=== PATIENT | male | born 1970 | race African-American/Black ===

== ENCOUNTER 2017-02-04 18:36 | Emergency (ER) | payer SELFPAY ==
[~2017-02-04] VITALS: Ht 188 cm; Wt 113.4 kg
[2017-02-04] MEDS ORDERED: IV NORMAL SALINE 1000ML BAG 1,000 ML IV SCH (19:30)
[2017-02-04] MEDS ORDERED: KETOROLAC TROMETHAMINE 30 MG/ML INJ. IV ONE (19:30)
[2017-02-04 20:02] LABS: BILIRUBIN,URINE NEGATIVE (NEG); GLUCOSE,URINE NEGATIVE (NEG); NITRITE,URINE NEGATIVE (NEG); PH,URINE 5.5; PROTEIN,URINE NEGATIVE (NEG-TRACE); UROBILINOGEN,URINE 0.2 mg/dL (0.2 mg/dL)
[2017-02-04 20:06] LABS: BASO # 0.1 x10^3/uL (0.0-0.2); BASO % 1 % (0-3); EOS % 1 % (0-3); HEMATOCRIT 41.2 % (39.0-53.0); HEMOGLOBIN 14.1 g/dL (13.0-17.5); LYMPH # 2.4 x10^3/uL (1.0-4.8); LYMPH % 34 % (24-48); MEAN CORPUSCULAR HEMOGLOBIN 31 pg (25-35); MEAN CORPUSCULAR HGB CONC 34 g/dL (31-37); MEAN CORPUSCULAR VOLUME 89 fL (79-100); MONO % 8 % (0-9); NEUT % 57 % (31-73); PLATELET COUNT 200 x10^3/uL (140-400); RED BLOOD COUNT 4.62 x10^6/uL (4.30-5.70); RED CELL DISTRIBUTION WIDTH 14.9 % (11.5-14.5); WHITE BLOOD COUNT 7.3 x10^3/uL (4.0-11.0)
[2017-02-04 20:08] LABS: BARBITURATES NEG (NEG); BENZODIAZEPINES NEG (NEG); CANNABINOIDS POS (NEG); COCAINE NEG (NEG); METHADONE NEG (NEG); OPIATES POS (NEG); PHENCYCLIDINE NEG (NEG)
[2017-02-04 20:09] LABS: BACTERIA,URINE 0 /HPF (0-FEW); RBC,URINE OCC /HPF (0-2); SQUAMOUS EPITHELIAL CELL,UR FEW /LPF; WBC,URINE OCC /HPF (0-4)
[2017-02-04 20:37] LABS: CKMB MASS 3.7 ng/mL (0.0-3.6)
[2017-02-04 20:51] LABS: ALK PHOS 82 U/L (46-116); ALT (SGPT) 25 U/L (16-63); AST (SGOT) 23 U/L (15-37); DIRECT BILIRUBIN 0.1 mg/dL (0.0-0.2); TOTAL BILIRUBIN 0.4 mg/dL (0.2-1.0); TOTAL PROTEIN 8.9 g/dL (6.4-8.2)
--- NOTE | 2017-02-04 20:55 | PHYS DOC ---
Past Medical History Past Medical History: Arthritis, CVA, Hypertension, Seizure Past Surgical History: Other Additional Past Surgical Histo: RT FINGER AMPUTEE Alcohol Use: None Drug Use: None Adult General Chief Complaint Chief Complaint: multiple HPI HPI Patient is a 46 year old male brought to the ED by family members with multiple complaints. Patient was recently released from halfway. 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 He drove himself home and right when he got out of his vehicle, he began to have pain on the left side of his chest and through both of his arms and legs. He felt like he had muscle spasms in his extremities. He walked to the porch and sat down in the chair, his legs spasmed up and he felt so bad he collapsed onto the porch. He feels like his legs are cramped up. It hurts to breathe. He has nausea but no vomiting. He feels like he has air bubbles under his rib cage. Family members found him collapsed on the porch and called EMS. He wanted to come here but we were close to ambulances at the time so EMS took him to [facility] where he was sent to the waiting room. Family stated he was going to have to wait too long to be seen so they put him in a wheelchair and took him to their car, put him in the car and brought him here to [place]. He did not ambulate into the ED, he was assisted from the car into the wheelchair by a family member. Patient states he has a history of seizures. He takes Depakote 500 mg twice a day. His last dose was this morning. His last seizure was Tuesday morning. 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 Patient does not have a primary care physician at this time. Review of Systems Review of Systems Constitutional: Denies fever or chills [] Eyes: Denies change in visual acuity, redness, or eye pain [] HENT: Denies nasal congestion or sore throat [] Respiratory: Denies cough or shortness of breath [] Cardiovascular: Pain in his chest in addition to generalized pain does not sound particularly cardiac GI: Denies abdominal pain, vomiting, bloody stools or diarrhea [] : Denies dysuria or hematuria [] Musculoskeletal: Generalized pain including front and back, all 4 extremities Integument: Denies rash or skin lesions [] Neurologic: Denies headache, focal weakness or sensory changes [] Current Medications Current Medications Current Medications Medications (Trade) Dose Ordered Sig/Kody Start Time Stop Time Status Last Admin Dose Admin Ketorolac Tromethamine (Toradol) 30 mg 1X ONCE 02/04/17 19:30 02/04/17 19:31 DC 02/04/17 20:01 30 MG Sodium Chloride 1,000 ml @ 1,000 mls/hr Q1H 02/04/17 19:30 02/04/17 20:29 DC 02/04/17 20:00 1,000 MLS/HR Allergies Allergies Allergies Coded Allergies Type Severity Reaction Last Updated Verified metformin Allergy Unknown Swelling 02/04/17 Yes Physical Exam Physical Exam Constitutional: Well developed, well nourished, alert, mentating normally, appears stable HENT: Normocephalic, atraumatic, bilateral external ears normal, nose normal. [ ] Eyes: conjunctiva normal, no discharge. [] Neck: Normal range of motion, no stridor. [] Cardiovascular:Heart rate regular rhythm, no murmur [] Lungs & Thorax: Bilateral breath sounds clear to auscultation [] Abdomen: Bowel sounds normal, soft, no tenderness, no masses, no pulsatile masses. [] Skin: Warm, dry, no erythema, no rash. [] Extremities: No tenderness, no cyanosis, no clubbing, ROM intact, no edema. No evidence of abnormal muscle contractions or spasms, no abnormalities noted. Neurologic: Alert and oriented X 3, normal motor function, normal sensory function, no focal deficits noted. [ Current Patient Data Vital Signs Vital Signs Date Time Temp Pulse Resp B/P (MAP) Pulse Ox O2 Delivery O2 Flow Rate FiO2 02/04/17 18:40 98.3 70 24 173/94 (120) 99 Room Air 98.3 Lab Values Laboratory Tests Test 02/04/17 19:30 02/04/17 19:45 Urine Collection Type Unknown Urine Color Yellow Urine Clarity Clear Urine pH 5.5 Urine Specific Vanderbilt 1.025 Urine Protein Negative mg/dL (NEG-TRACE) Urine Glucose (UA) Negative mg/dL (NEG) Urine Ketones (Stick) Negative mg/dL (NEG) Urine Blood Negative (NEG) Urine Nitrite Negative (NEG) Urine Bilirubin Negative (NEG) Urine Urobilinogen Dipstick 0.2 mg/dL (0.2 mg/dL) Urine Leukocyte Esterase Negative (NEG) Urine RBC Occ /HPF (0-2) Urine WBC Occ /HPF (0-4) Urine Squamous Epithelial Cells Few /LPF Urine Amorphous Sediment Present /HPF Urine Bacteria 0 /HPF (0-FEW) Urine Mucus Marked /LPF Urine Opiates Screen Pos (NEG) Urine Methadone Screen Neg (NEG) Urine Barbiturates Neg (NEG) Urine Phencyclidine Screen Neg (NEG) Urine Amphetamine/Methamphetamine Neg (NEG) Urine Benzodiazepines Screen Neg (NEG) Urine Cocaine Screen Neg (NEG) Urine Cannabinoids Screen Pos (NEG) Urine Ethyl Alcohol Neg (NEG) White Blood Count 7.3 x10^3/uL (4.0-11.0) Red Blood Count 4.62 x10^6/uL (4.30-5.70) Hemoglobin 14.1 g/dL (13.0-17.5) Hematocrit 41.2 % (39.0-53.0) Mean Corpuscular Volume 89 fL (79-100) Mean Corpuscular Hemoglobin 31 pg (25-35) Mean Corpuscular Hemoglobin Concent 34 g/dL (31-37) Red Cell Distribution Width 14.9 % (11.5-14.5) H Platelet Count 200 x10^3/uL (140-400) Neutrophils (%) (Auto) 57 % (31-73) Lymphocytes (%) (Auto) 34 % (24-48) Monocytes (%) (Auto) 8 % (0-9) Eosinophils (%) (Auto) 1 % (0-3) Basophils (%) (Auto) 1 % (0-3) Neutrophils # (Auto) 4.1 x10^3uL (1.8-7.7) Lymphocytes # (Auto) 2.4 x10^3/uL (1.0-4.8) Monocytes # (Auto) 0.6 x10^3/uL (0.0-1.1) Eosinophils # (Auto) 0.1 x10^3/uL (0.0-0.7) Basophils # (Auto) 0.1 x10^3/uL (0.0-0.2) Sodium Level 140 mmol/L (136-145) Potassium Level 3.8 mmol/L (3.5-5.1) Chloride Level 101 mmol/L (98-107) Carbon Dioxide Level 30 mmol/L (21-32) Anion Gap 9 (6-14) Blood Urea Nitrogen 20 mg/dL (8-26) Creatinine 1.4 mg/dL (0.7-1.3) H Estimated GFR (Cockcroft-Gault) 65.7 Glucose Level 88 mg/dL (70-99) Calcium Level 8.7 mg/dL (8.5-10.1) Magnesium Level 2.0 mg/dL (1.8-2.4) Total Bilirubin 0.4 mg/dL (0.2-1.0) Direct Bilirubin 0.1 mg/dL (0.0-0.2) Aspartate Amino Transferase (AST) 23 U/L (15-37) Alanine Aminotransferase (ALT) 25 U/L (16-63) Alkaline Phosphatase 82 U/L (46-116) Creatine Kinase 1493 U/L (39-308) H Creatine Kinase MB (Mass) 3.7 ng/mL (0.0-3.6) H Creatine Kinase MB Relative Index 0.2 % (0-4) Troponin I Quantitative 0.017 ng/mL (0.000-0.055) Total Protein 8.9 g/dL (6.4-8.2) H Albumin 4.0 g/dL (3.4-5.0) Lipase 219 U/L (73-393) Valproic Acid Level 19 mcg/mL (50-100) L Valproic Acid Last Dose Date 02/04 Valproic Acid Last Dose Time 0800 Laboratory Tests 02/04/17 19:45 Laboratory Tests 02/04/17 19:45 EKG EKG Lead EKG read by me. Sinus rhythm. Heart rate 69. There are no acute ST or T wave changes indicative of ischemia or infarction. No STEMI. 1849 [] Radiology/Procedures Radiology/Procedures One view portable chest x-ray read by me. Heart size normal. Lung friedman are clear. No pulmonary edema. No pleural effusions. Normal chest x-ray. [] Course & Med Decision Making Course & Med Decision Making Pertinent Labs and Imaging studies reviewed. (See chart for details) 46-year-old male brought to the ED from home with multiple complaints including pain in the chest and back, arms and legs, "muscle spasms." I do not note any muscle spasms on exam. I advised the patient and family we will check some labs , give him something for pain, give him some IV fluids, and they're agreeable to that plan. Patient was given some IV Toradol and a liter of IV fluids. When I rechecked him , he was sitting up on the edge of the bed, no acute distress, talking with family, stated that he is ready for discharge. Labs significant for a subtherapeutic Depakote level, see instructions for plan. Also, elevated CPK but no blood in the urine. Creatinine may be slightly elevated but the patient is a very muscular 46-year-old so that could be normal for him. I strongly urge the patient to avoid driving or operating heavy machinery if he is having seizures and follow up with a primary care physician. See instructions for plan. [] Dragon Disclaimer Dragon Disclaimer This electronic medical record was generated, in whole or in part, using a voice recognition dictation system. Departure Departure Impression: Primary Impression: Myalgia Additional Impressions: Elevated CPK Dehydration Seizure disorder Seizure secondary to subtherapeutic anticonvulsant medication Disposition: 01 HOME, SELF-CARE Condition: STABLE Referrals: NO PCP (PCP) Patient Instructions: Dehydration, Adult, [id number], Seizure Disorder, Child , Generalized Tonic-Clonic Additional Instructions: As we discussed, your Depakote level was a little bit low. Take 2 pills tonight at bedtime and then resume taking one twice a day as you are supposed to. See a primary care doctor to have your Depakote level checked in the next 1-2 weeks. As we discussed, absolutely no driving or operating heavy machinery until you are released to do so by a physician. Having seizures while driving or operating machinery can be extremely dangerous. You are dehydrated today, you may be losing more fluid through sweating then you are able to replace by drinking. Make sure you're drinking plenty of water all day long and in the evening even when you are not working outside. Problem Qualifiers FRIEDA MONTERO MD Feb 04, 2017 20:55
[2017-02-04 21:30] VITALS: BP 164/94
[2017-02-04 21:36] LABS: CALCIUM 8.7 mg/dL (8.5-10.1); CREATININE 1.4 mg/dL (0.7-1.3); GFR 65.7; POTASSIUM 3.8 mmol/L (3.5-5.1)
--- NOTE | 2017-02-05 08:24 | RAD ---
EXAM: CHEST 1 VIEW History: Chest pain COMPARISON: None available. TECHNIQUE: Single portable radiograph of the chest FINDINGS: The cardiac silhouette is unremarkable. The lungs are clear bilaterally. The costophrenic sulci are clear and well demarcated. IMPRESSION: No radiographic evidence of an acute cardiopulmonary process.
--- NOTE | 2017-02-05 11:35 | EKG ---
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
== END 2017-02-04 22:00 | disposition home or self-care (01) ==
LOC: ER 18:36
DX: M79.1 Myalgia (principal); G40.509 Epileptic seizures related to external causes, not intractable, without status epilepticus; T42.75XA Adverse effect of unspecified antiepileptic and sedative-hypnotic drugs, initial encounter; R41.3 Other amnesia; E86.0 Dehydration; R74.8 Abnormal levels of other serum enzymes; Y92.89 Other specified places as the place of occurrence of the external cause
CPT/HCPCS: 36415; 71010; 80048; 80076; 80164; 80305; 80320; 81001; 82553; 83690; 83735; 84484; 85027; 93005; 96361; 96374; 99285; J1885; J7030; G0481